=== PATIENT | male | born 1960 | race Two or more races ===

== ENCOUNTER 2021-11-21 05:56 | Day surgery (SDC) | payer OTHER | END 2021-11-21 12:20 | disposition home or self-care (01) | LOC: AMB-ENDOS 05:56 | PROVIDERS: ATTEND Colon & Rectal Surgery | DX: R19.5 Other fecal abnormalities (principal); K64.8 Other hemorrhoids; E11.9 Type 2 diabetes mellitus without complications; I10 Essential (primary) hypertension; E03.9 Hypothyroidism, unspecified; Z88.8 Allergy status to other drugs, medicaments and biological substances ==